=== PATIENT | female | born 1975 | race Caucasian/White ===

== ENCOUNTER 2018-05-29 12:13 | Day surgery (SDC) | payer MEDICAID ==
[~2018-05-29] VITALS: Ht 170.2 cm; Wt 87.0 kg
[~2018-05-29 12:13] MED LIST: BUPR-93 PO; LEVO75 PO; SERT100T12 PO
[2018-05-29] MEDS ORDERED: PROPOFOL 1% 20 ML VIAL IVP ONE (12:14)
[2018-05-29] MEDS ORDERED: LIDOCAINE/PF 2% 5 ML VIAL IM ONE (12:14)
[2018-05-29] MEDS ORDERED: SODIUM CHLORIDE 0.9% 1,000 ML IV ONE ×2 (12:30→12:37)
== END 2018-05-29 16:00 | disposition home or self-care (01) ==
LOC: SURGERY 12:13
PROVIDERS: ATTEND Student in an Organized Health Care Education/Training Program
DX: K62.89 Other specified diseases of anus and rectum (principal); K64.8 Other hemorrhoids; E03.9 Hypothyroidism, unspecified; F41.8 Other specified anxiety disorders; Z88.0 Allergy status to penicillin; Z82.49 Family history of ischemic heart disease and other diseases of the circulatory system; Z79.899 Other long term (current) drug therapy
CPT/HCPCS: 45380; 84703; 88305; C1769; J2704; J3490; J7030